=== PATIENT | male | born 2000 | race Caucasian/White ===

== ENCOUNTER 2020-08-11 07:57 | Emergency (ER) | payer OTHER ==
[~2020-08-11] VITALS: Ht 180.3 cm; Wt 119.8 kg
== END 2020-08-11 09:27 | disposition home or self-care (01) ==
LOC: ER 07:57
DX: U07.1 COVID-19 (principal)
CPT/HCPCS: 99283

== ENCOUNTER 2021-07-07 11:46 | Day surgery (SDC) | payer OTHER ==
[~2021-07-07] VITALS: Ht 180.3 cm; Wt 125.1 kg
[~2021-07-07 11:46] MED LIST: OMEP20ER PO
[2021-07-07] MEDS ORDERED: ALBU2.5V5 (12:06)
== END 2021-07-07 14:30 | disposition home or self-care (01) ==
LOC: ORSCSDS 11:46
PROVIDERS: Student in an Organized Health Care Education/Training Program
PROC: 0DB58ZX Excision of Esophagus, Via Natural or Artificial Opening Endoscopic, Diagnostic (ICD-10-PCS; principal; 2021-07-07 13:00)
PROC: 0DB78ZX Excision of Stomach, Pylorus, Via Natural or Artificial Opening Endoscopic, Diagnostic (ICD-10-PCS; principal; 2021-07-07 13:00)
DX: K21.9 Gastro-esophageal reflux disease without esophagitis (principal); R10.13 Epigastric pain; Z79.899 Other long term (current) drug therapy; F17.220 Nicotine dependence, chewing tobacco, uncomplicated
CPT/HCPCS: 88305; 88342; A9270; J2250; J2704; J7120

== ENCOUNTER 2024-12-09 18:15 | Emergency (ER) | payer OTHER ==
[~2024-12-09] VITALS: Ht 180.3 cm; Wt 115.7 kg
[~2024-12-09 18:15] MED LIST changes: +ALBU2.5V5
[2024-12-09 18:44] VITALS: BP 144/99
[2024-12-09] MEDS ORDERED: Lidocaine 4% 1 Patch TOP ONE (19:40)
[2024-12-09] MEDS ORDERED: Ketorolac Tromethamine 30mg Vial IM ONE (19:40)
[2024-12-09] MEDS ORDERED: IBUP600 PO ×2 (20:53→23:50)
[2024-12-09] MEDS ORDERED: LIDO700A20 TOP ×2 (20:53→23:50)
[2024-12-09] MEDS ORDERED: FAMO20 PO ×2 (20:53→23:50)
[2024-12-09] MEDS ORDERED: ACYC800 PO ×2 (20:53→23:50)
[2024-12-13 13:43] LABS: VARICELLA-ZOSTER VIRUS BY PCR Not Detected; VARICELLA-ZOSTER VIRUS SOURCE LEFT FLANK
== END 2024-12-09 21:09 | disposition home or self-care (01) ==
LOC: ER 18:15
PROVIDERS: Student in an Organized Health Care Education/Training Program
DX: B02.9 Zoster without complications (principal)
CPT/HCPCS: 87798; 96372; 99283-25; A9270; J1885